=== PATIENT | male | born 1945 | race Caucasian/White ===

== ENCOUNTER 2017-04-11 03:23 | Emergency (ER) | payer MEDICARE ==
[2017-04-11] MEDS ORDERED: methylPREDNISolone 125 MG* 2 ML VIAL IV ONE (03:30)
[2017-04-11] MEDS ORDERED: Albuterol/Ipratropium NEB.SOL* Albuterol 2.5 MG/Ipratropium 0.5 MG 3 ML ONE (03:37)
[2017-04-11] MEDS: Albuterol/Ipratropium NEB.SOL* Albuterol 2.5 MG/Ipratropium 0.5 MG 3 ML INH SCH ×2 (03:42→03:43)
[2017-04-11 03:55] LABS: FIO2 28
[2017-04-11 04:00] LABS: PCO2 Arterial 54 mmHg (35-45)
[2017-04-11 04:01] LABS: Hematocrit 39 % (42-52); Hemoglobin 13.2 g/dl (14.0-18.0); Mean Corpuscular HGB Conc 34 g/dl (31-36); Mean Corpuscular Hemoglobin 34 pg (27-31); Mean Corpuscular Volume 100 fL (80-94); Mean Platelet Volume 9 um3 (7.4-10.4); Red Blood Count 3.93 10^6/ul (4.0-5.4); Red Cell Distribution Width 13 % (10.5-15); White Blood Count 9.8 10^3/ul (3.5-10.8)
[2017-04-11 04:20] LABS: Albumin 3.9 g/dL (3.2-5.2); BUN/Creatinine Ratio 11.1 (8-20); EGFR African American 86.9 (>60); EGFR Non-African American 67.6 (>60); Globulin 2.9 g/dL (2-4); Potassium 3.8 mmol/L (3.5-5.0); Total Bilirubin 0.3 mg/dL (0.2-1.0); Total Protein 6.8 g/dL (6.4-8.9)
[2017-04-11 04:21] LABS: Troponin I 0.03 ng/mL (<0.04)
--- NOTE | 2017-04-11 06:33 | ED ---
Isidro Medina Rebecca, scribed for Azeb Michaeluel on 04/11/17 at 0341 . Shortness of Breath - HPI Summary HPI Summary: Pt is a 71 y/o M BIBA who presents to ED c/o SOB characterized as dyspnea at rest. Sx have been gradually worsening since yesterday evening. Sx aggravated by exertion, alleviated by nothing. Additionally c/o slight cough. Denies CP, fever. His living facility has given him 7 respiratory treatments, but sx do not seen to be improving. PMHx COPD. - History of Current Complaint Chief Complaint: EDShortnessOfBreath Time Seen by Provider: 04/11/17 03:34 Hx Obtained From: Patient Onset/Duration: Still Present Dyspnea At: Rest Aggrevating Factors: Other - Exertion Alleviating Factors: Nothing Associated Signs & Symptoms: Cough (Nonproductive) - Allergy/Home Medications Allergies/Adverse Reactions: Allergies Allergy/AdvReac Type Severity Reaction Status Date / Time Lisinopril Allergy Unknown Verified 04/11/17 04:10 Reaction Details Home Medications: Home Medications Guaifenesin 400 mg PO TID PRN 04/11/17 [History Confirmed 04/11/17] predniSONE TAB* [Deltasone TAB*] 5 mg PO DAILY 04/11/17 [History Confirmed 04/11] PMH/Surg Hx/FS Hx/Imm Hx Cardiovascular History: Reports: Hx Hypertension Respiratory History: Reports: Hx Chronic Obstructive Pulmonary Disease (COPD), Hx Pneumonia Denies: Hx Asthma, Hx Chronic Bronchitis, Hx Cystic Fibrosis, Hx Lung Cancer , Hx Pleural Effusion, Hx Pulmonary Edema, Hx Pulmonary Embolism, Hx Seasonal Allergies, Hx Sleep Apnea Sensory History: Denies: Hx Cataracts, Hx Contacts or Glasses, Hx Eye Injury, Hx Eye Prosthesis, Hx Glaucoma, Hx Legally Blind, Hx Macular Degeneration, Hx Vision Problem, Hx Deafness, Hx Hearing Aid, Hx Hearing Problem, Other Sensory Impairments Opthamlomology History: Denies: Hx Cataracts, Hx Contacts or Glasses, Hx Eye Injury, Hx Eye Prosthesis, Hx Glaucoma, Hx Legally Blind, Hx Macular Degeneration, Hx Vision Problem, Other Sensory Impairments Neurological History: Reports: Hx Headaches, Hx Migraine, Hx Seizures, Other Neuro Impairments/Disorders - parkinsons Denies: Hx Dementia, Hx Developmental Delay, Hx Nerve Disease, Hx Spinal Cord Injury, Hx Transient Ischemic Attacks (TIA) Psychiatric History: Reports: Hx Anxiety, Hx Depression, Hx Schizophrenia, Other Psychiatric Issues/Disorders - autistic - Immunization History Date of Tetanus Vaccine: PT STATES UNSURE Date of Influenza Vaccine: PT STATES UNSURE Infectious Disease History: No Infectious Disease History: Denies: Hx Clostridium Difficile, Hx Hepatitis, Hx Human Immunodeficiency Virus (HIV), Hx of Known/Suspected MRSA, Hx Shingles, Hx Tuberculosis, Hx Known/ Suspected VRE, Hx Known/Suspected VRSA, History Other Infectious Disease, Traveled Outside the [place] in Last 30 Days - Family History Known Family History: Negative: Seizure Disorder - Social History Alcohol Use: None Substance Use Type: Reports: None Hx Tobacco Use: Yes Smoking Status (MU): Light Every Day Tobacco Smoker Have You Smoked in the Last Year: Yes Review of Systems Negative: Fever Negative: Chest Pain Positive: Shortness Of Breath, Cough All Other Systems Reviewed And Are Negative: Yes Physical Exam - Summary Physical Exam Summary: Appearance: Well appearing, no pain distress Skin: warm, dry, reflects adequate perfusion Head/face: normal Eyes: EOMI, KENYA ENT: normal Neck: supple, nontender Respiratory: breath sounds present, poor air entry, occasional wheeze bilaterally Cardiovascular: RRR, pulses symmetrical Abdomen: nontender, soft Bowel: present Musculoskeletal: normal, strength/ROM intact Neuro: alert and confused, sensory motor intact Triage Information Reviewed: Yes Vital Signs On Initial Exam: Initial Vitals Temp Pulse Resp BP Pulse Ox 98.0 F 73 24 180/115 98 04/11/17 03:28 04/11/17 03:28 04/11/17 03:28 04/11/17 03:28 04/11/17 03:28 Vital Signs Reviewed: Yes Diagnostics - Vital Signs Vital Signs Temp Pulse Resp BP Pulse Ox 04/11/17 03:28 98.0 F 73 24 180/115 98 - Laboratory Result Diagrams: 04/11/17 03:47 04/11/17 03:47 Lab Statement: Any lab studies that have been ordered have been reviewed, and results considered in the medical decision making process. - Radiology CXR Xray Interpretation: Positive (See Comments) - Infiltrate in the left lower lobe. Radiology Interpretation Completed By: ED Physician - EKG 0337 Cardiac Rate: NL - 76 bpm EKG Rhythm: Sinus Rhythm EKG Interpretation: RBBB Course/Dx - Course Assessment/Plan: Pt is a 71 y/o M BIBA who presents to ED c/o SOB characterized as dyspnea at rest. Sx have been gradually worsening since yesterday evening. Sx aggravated by exertion, alleviated by nothing. Additionally c/o slight cough. Denies CP, fever. His living facility has given him 7 respiratory treatments, but sx do not seen to be improving. PMHx COPD. CXR reveals infiltrate in the left lower lobe. EKG is sinus rhythm with RBBB. In the ED course, pt received Zosyn and Solu-Medrol. Discussed care of pt with Dr. Atkinson, who accepts pt for admisison. Pt will be admitted with Dx of PNA and acute exacerbation of COPD. He understands and agrees. Allergy noted. - Diagnoses Provider Diagnoses: PNA (pneumonia), Acute exacerbation of chronic obstructive pulmonary disease - Physician Notifications Discussed Care of Patient With: Aleksey Atkinson Time Discussed With Above Provider: 05:05 Instructed by Provider To: Other - Accepts pt for admission. Discharge - Discharge Plan Condition: Stable Disposition: ADMITTED TO [facility] documentation as recorded by the Isidro rodgers Rebecca accurately reflects the service I personally performed and the decisions made by , Everett Michael.
--- NOTE | 2017-04-11 08:18 | RAD ---
HISTORY: Shortness of breath COMPARISONS: May 14, 2016 VIEWS: 1: frontal portable view of the chest at 3:58 AM FINDINGS: LINES AND TUBES: None. CARDIOMEDIASTINAL SILHOUETTE: The cardiomediastinal silhouette is normal for portable technique. PLEURA: The costophrenic angles are sharp. No pleural abnormalities are noted. LUNG PARENCHYMA: There is extensive emphysematous change. There has been improved aeration of the lung bases bilaterally. ABDOMEN: The upper abdomen is clear. There is no subphrenic gas. BONES AND SOFT TISSUES: No bone or soft tissue abnormalities are noted. IMPRESSION: EMPHYSEMA
[2017-04-11 11:41] VITALS: BP 176/97
--- NOTE | 2017-04-11 21:14 | CONS ---
CONSULTATION REPORT: DATE OF CONSULT: 04/11/17 SERVICE REQUESTING CONSULT: Emergency room. REASON FOR CONSULT: Shortness of breath. SOURCE OF INFORMATION: History was obtained from interview with the patient, review of past medical records, ____. RELIABILITY: Fair. PRIMARY CARE PROVIDER: MAYDA Corrales HEALTHCARE PROXY: Josesito Ray. CODE STATUS: Full. HISTORY OF PRESENT ILLNESS: This is a 71-year-old man with past medical history of schizophrenia; hypertension; COPD with chronic respiratory failure, on 4 L home oxygen; depression, has been in his usual state of health, said he felt sick a few days ago with a slight cough that has since resolved. No rhinorrhea, sore throat, fevers, chills, nausea, vomiting, constipation, or diarrhea, who developed increasing difficulty breathing the night prior to presentation. Received nebulizer treatments at the [facility] prior to presenting to the emergency room. In the emergency room, he received 3 or 4 nebulizers per chart review and mg of methylprednisolone as well as 1 dose of Zosyn. It appears his administration of the methylprednisolone was approximately 5 to 6 hours prior to this author's evaluation of the patient. When seen by this author, the patient fell back to his baseline, felt his shortness of breath was completely resolved, and had no complaints. He is requesting return to [facility]. When interviewed by this author, the patient was on 2 L of oxygen compared to the 4 L that he uses at [facility] per review of their charts. I ambulated with this patient around the emergency room with no notable desaturation, no increased work of breathing. He was able to carry on a conversation while ambulating. We discussed further, with this ambulation , he had no increased shortness of breath, no accessory muscle use of breathing , so felt comfortable returning home. His only complaint was request for coffee. PAST MEDICAL HISTORY: Schizophrenia; hypertension; COPD; chronic respiratory failure, on 4 L oxygen at home; depression. HOME MEDICATIONS: 1. Guaifenesin. 2. Arthritis Hot topically. 3. Albuterol sulfate 4 times a day as needed. 4. Trazodone 50 mg at bedtime as needed. 5. Tiotropium 1 cap inhaled daily. 6. Acetaminophen 500 mg 3 times a day as needed. 7. Symbicort 80/4.5 two puffs inhaled twice daily. 8. Primidone 250 mg 3 times daily. 9. Nutritional supplements twice daily. 10. Olanzapine 20 mg twice daily. 11. Multivitamin 1 tab daily. 12. Mirtazapine 30 mg at bedtime. 13. Prednisone 5 mg daily. 14. Docusate 200 mg daily. 15. Diltiazem 240 mg daily. 16. Aspirin 81 mg daily. ALLERGIES: To LISINOPRIL. FAMILY HISTORY: No COPD, otherwise healthy. SOCIAL HISTORY: Lives at [facility]. Has a 40-pack history of smoking. No alcohol. REVIEW OF SYSTEMS: Positive for shortness of breath on presentation, now resolved. Slight cough several days prior to presentation, now resolved. Otherwise, all other systems reviewed and negative. PHYSICAL EXAM: Vitals when seen by this author, 144/77, heart rate is 81, respiratory rate is 18, he satting 96% on 2 L, T-max in the emergency room is 98. On physical exam, a thin gentleman sitting up in bed, interactive, pleasant , in no apparent distress. Talks in full sentences, he is able to count until 10 in one breath without difficulty. No accessory muscle use for respiration. His oropharynx is clear. He has dry mucous membranes. Sclerae anicteric. He has non- elevated JVD. No cervical or supraclavicular lymphadenopathy. Has regular rate and rhythm. No murmurs, rubs, or gallops. His lungs have decreased breath sounds throughout, but no adventitious lung sounds. His abdomen is soft, nontender, nondistended. Extremities are warm and well perfused. No clubbing, cyanosis, or edema. He is alert and oriented. DIAGNOSTIC STUDIES/LAB DATA: Reviewed, notable for hemoglobin 13.3, white blood cell count 9.8, platelets 199. D-dimer less than 200. He had arterial blood gas notable for pH of 7.4, arterial PCO2 of 54, arterial PO2 of 90. His BUN is 12, his creatinine is 1.0. Troponin I 0.03. His BNP is 28. Data reviewed: Chest x-ray, impression: Emphysema. EKG: Normal sinus rhythm, left axis, early R-wave progression, left anterior fascicular block. No ST or T-wave changes. ASSESSMENT AND PLAN: This is a 71-year-old man with past medical history of advanced chronic obstructive pulmonary disease with chronic respiratory failure on 4 L oxygen, presenting with increased shortness of breath, unresponsive to albuterol, improved with methylprednisolone. The patient carries clinical diagnosis of emphysema and chronic obstructive pulmonary disease. Therefore, it is not surprising that his shortness of breath is not improved with albuterol given the presumptive lack of reactivity in his airway. This is expected to improve with the administration of steroids given appropriate duration of time. When seen by this author, he restored back to his baseline without shortness of breath. He is able to ambulate without increased shortness of breath or increased oxygen demand. I do recommend that he continues steroid course for presumptive chronic obstructive pulmonary disease exacerbation including 40 mg of prednisone for 5 additional days. This information was relayed to Dr. Gabo Saenz, who will provide prescription for the patient upon discharge. Nothing that requires hospital stay at this point for further observation or treatment. No other changes recommended for the patient's chronic medical problems including his controlled schizophrenia, hypertension, and depression. TIME SPENT: Greater than 60 minutes was spent on the consultation of this patient, of which greater than half was spent [id number] with the patient in coordinating his care. Thank you for this consultation. Please do not hesitate to contact for further questions. [id number]/[facility] #: [id number] PABLO
== END 2017-04-11 12:59 | disposition home or self-care (01) ==
LOC: ED 03:23
DX: R05 Cough (principal); R06.02 Shortness of breath; F17.210 Nicotine dependence, cigarettes, uncomplicated
CPT/HCPCS: 36415; 36600; 71010; 80053; 82803; 83880; 84484; 85025; 85379; 93005; 94640; 99284; A9270-GY; J2543; J2930

== ENCOUNTER 2018-12-22 09:14 | Inpatient (IN) | payer MEDICARE ==
[2018-12-22] MEDS ORDERED: NS 0.9% 1000 ML** 1,000 ML IV ONE (09:31)
[2018-12-22] MEDS ORDERED: cefTRIAXone(*) 1 GM in NS 0.9% 50 ML* 50 ML IVPB ONE (09:31)
--- NOTE | 2018-12-22 09:32 | ED ---
Sepsis HPI - HPI Summary HPI Summary: Patient is a 73-year-old male living at the [facility] with history of schizophrenia and hypertension and COPD presenting to the ED with AMS, UTI and lethargy. Nursing staff at [facility] state typically patient is eating and drinking well and involved in activities and patient was difficult to arouse this morning. He has been treated for a UTI 2 days by his PCP. He has been on ciprofloxacin. No MOLST on file. Patient does present with paperwork stating no artificial food or drink, no artificial means of life support. Per RN note, 89% on 4L. Typically uses 4L at home for COPD. - History of Current Complaint Chief Complaint: EDAltMentalStatus Time Seen by Provider: 12/22/18 09:20 Stated Complaint: UTI / AMS PER EMS Hx Obtained From: Family/Food Service Agent, EMS Onset/Duration: Started Hours Ago Timing: Constant Onset Severity: Moderate Current Severity: Moderate Pain Intensity: 0 Pain Scale Used: 0-10 Numeric Aggravating Symptom(s): Unknown Alleviating Factor(s): Unknown Associated Signs & Symptoms: Negative - Risk Factor(s) Pseudomonas Risk Factors: Negative - Additional Pertinent History Primary Care Physician: [id number] - Allergy/Home Medications Allergies/Adverse Reactions: Allergies Allergy/AdvReac Type Severity Reaction Status Date / Time lisinopril Allergy Unknown Verified 12/22/18 11:29 Reaction Details Home Medications: Home Medications Hydrochlorothiazide TAB* [Hydrodiuril TAB*] 12.5 mg PO DAILY 12/22/18 [History Confirmed 12/22/18] LORazepam [Lorazepam] 0.5 mg PO DAILY 12/22/18 [History Confirmed 12/22/18] Menth/Me-Salicylate/Onley Oil [Castiva Cooling Lotion] 113 gm TP DAILY PRN [History Confirmed 12/22/18] Mometasone 220 MCG MDI * [Asmanex 220 MCG MDI *] 1 puff INH BID 12/22/18 [ History Confirmed 12/22/18] Tamsulosin CAP* [Flomax CAP*] 0.4 mg PO DAILY 12/22/18 [History Confirmed ] PMH/Surg Hx/FS Hx/Imm Hx Previously Healthy: Yes Cardiovascular History: Reports: Hx Hypertension Respiratory History: Reports: Hx Chronic Obstructive Pulmonary Disease (COPD), Hx Pneumonia Denies: Hx Asthma, Hx Chronic Bronchitis, Hx Cystic Fibrosis, Hx Lung Cancer , Hx Pleural Effusion, Hx Pulmonary Edema, Hx Pulmonary Embolism, Hx Seasonal Allergies, Hx Sleep Apnea Sensory History: Denies: Hx Cataracts, Hx Contacts or Glasses, Hx Eye Injury, Hx Eye Prosthesis, Hx Glaucoma, Hx Legally Blind, Hx Macular Degeneration, Hx Vision Problem, Hx Deafness, Hx Hearing Aid, Hx Hearing Problem, Other Sensory Impairments Opthamlomology History: Denies: Hx Cataracts, Hx Contacts or Glasses, Hx Eye Injury, Hx Eye Prosthesis, Hx Glaucoma, Hx Legally Blind, Hx Macular Degeneration, Hx Vision Problem, Other Sensory Impairments Neurological History: Reports: Hx Headaches, Hx Migraine, Hx Seizures, Other Neuro Impairments/Disorders - parkinsons Denies: Hx Dementia, Hx Developmental Delay, Hx Nerve Disease, Hx Spinal Cord Injury, Hx Transient Ischemic Attacks (TIA) Psychiatric History: Reports: Hx Anxiety, Hx Depression, Hx Schizophrenia, Other Psychiatric Issues/Disorders - autistic - Immunization History Date of Tetanus Vaccine: PT STATES UNSURE Date of Influenza Vaccine: PT STATES UNSURE Hx Pertussis Vaccination: No Immunizations Up to Date: Yes Infectious Disease History: No Infectious Disease History: Denies: Hx Clostridium Difficile, Hx Hepatitis, Hx Human Immunodeficiency Virus (HIV), Hx of Known/Suspected MRSA, Hx Shingles, Hx Tuberculosis, Hx Known/ Suspected VRE, Hx Known/Suspected VRSA, History Other Infectious Disease, Traveled Outside the [place] in Last 30 Days - Family History Known Family History: Negative: Seizure Disorder - Social History Occupation: Unemployed - disabled Lives: [facility] - [facility] Alcohol Use: None Hx Substance Use: No Substance Use Type: Reports: None Hx Tobacco Use: Yes Smoking Status (MU): Light Every Day Tobacco Smoker Have You Smoked in the Last Year: Yes Review of Systems Negative: Fever, Chills, Fatigue, Skin Diaphoresis Negative: Palpitations, Chest Pain Negative: Shortness Of Breath, Cough Positive: Abdominal Pain Positive: see HPI Negative: Arthralgia, Myalgia Skin: Negative All Other Systems Reviewed And Are Negative: Yes Physical Exam Triage Information Reviewed: Yes Vital Signs On Initial Exam: Initial Vitals Temp Pulse Resp BP Pulse Ox 97.8 F 89 16 119/72 97 12/22/18 09:17 12/22/18 09:17 12/22/18 09:17 12/22/18 09:17 12/22/18 09:17 Completion Of Physical Exam Limited Due To: Altered Mental Status Appearance: Positive: Ill-Appearing Skin: Positive: Pale Head/Face: Positive: Normal Head/Face Inspection Eyes: Positive: Conjunctiva Clear Neck: Positive: No Lymphadenopathy Respiratory/Lung Sounds: Positive: Clear to Auscultation, Breath Sounds Present Cardiovascular: Positive: RRR, Pulses are Symmetrical in both Upper and Lower Extremities Abdomen Description: Positive: Other: - tender to the suprapubic region without CVA tenderness bilaterally Musculoskeletal: Positive: Normal Neurological: Positive: Alert, Oriented to Person Place, Time, Speech Normal AVPU Assessment: Pain (Reponds To) - painful stimuli Diagnostics - Vital Signs Vital Signs Temp Pulse Resp BP Pulse Ox 12/22/18 09:17 97.8 F 89 16 119/72 97 - Laboratory Result Diagrams: 12/22/18 09:50 12/22/18 09:50 Lab Statement: Any lab studies that have been ordered have been reviewed, and results considered in the medical decision making process. Course/Dx - Course Course Of Treatment: Patient is a 73-year-old male living at the [facility] with history of schizophrenia and hypertension and COPD presenting to the ED with AMS, UTI and lethargy. Nursing staff at [facility] state typically patient is eating and drinking well and involved in activities and patient was difficult to arouse this morning. He has been treated for a UTI 2 days by his PCP. He has been on ciprofloxacin. No MOLST on file. Patient does present with paperwork stating no artificial food or drink, no artificial means of life support. Per RN note, 89% on 4L. Typically uses 4L at home for COPD. Hx of sepsis 2 years ago for PNA. Unable to obtain HPI from patient. Arousable only to stimuli, unable to arouse with voice commands. Patient has urine odor. No cough. Patient is sleeping and currently on 4L O2. Patient appears pale. Pedal edema +2 bilaterally. Chest CTA. RRR. Afebrile on arrival. HR 89. Restpirations 20. 97% on 4L and 119/72. EKG: sinus rhythm with atrial premature complex and couplets. RBBB. ST elevation, consider lateral injury. Rate is 78. UA shows 3+ leukocytes, 3+ WBCs and 3+ RBCs positive for UTI. Failure with outpatient antibiotics on Cipro 2 days. Chest xray: Probable mild interstitial pulmonary edema given thickened peripheral interlobular septal. Stigmata of COPD. Labs: 17,000 white count with a left shift. CRP 150. Trop 0.06. BNP 193. Discussed case with Dr. Mcneil d/t worsening sxs and failure of OP abx. Encouraged CT to assess kidney function. This is pending while patient is being admitted. MRSA nasal + called to me at 2:00pm. Patient did not meet septic criteria. - Differential Dx/Clinical Impression Differential Diagnosis/HQI/PQRI: Other - Pyelonephritis, fever of unknown origin Provider Diagnosis: Sepsis, UTI (urinary tract infection) - Provider Notifications Discussed Care Of Patient With: Char Mcneil Instructed by Provider To: Admit As Inpatient - Critical Care Time Critical Care Time: 30-74 min Discharge - Sign-Out/Discharge Documenting (check all that apply): Patient Departure Patient Received Moderate/Deep Sedation with Procedure: No - Discharge Plan Condition: Fair Disposition: ADMITTED TO [facility] Referrals: Francheska Blanco [Primary Care Provider] - - Billing Disposition and Condition Condition: FAIR Disposition: Admitted to [facility]
[2018-12-22 10:13] LABS: ABS Lymphocytes 0.5 10^3/ul (1.0-4.8); ABS Monocytes 0.6 10^3/ul (0-0.8); ABS Neutrophils 16.8 10^3/ul (1.5-7.7); Eosinophil % 0.2 %; Hematocrit 31 % (42-52); Hemoglobin 10.4 g/dL (14.0-18.0); Lymphocyte % 2.7 %; Mean Corpuscular HGB Conc 34 g/dL (31-36); Mean Corpuscular Hemoglobin 32 pg (27-31); Mean Corpuscular Volume 95 fL (80-94); Mean Platelet Volume 8.8 fL (7.4-10.4); Platelet Count 334 10^3/uL (150-450); Red Blood Count 3.25 10^6 /uL (4.18-5.48); Red Cell Distribution Width 13 % (10-15); White Blood Count 17.9 10^3/uL (3.5-10.8)
[2018-12-22 10:20] LABS: Urine Appearance Cloudy; Urine Bacteria Absent (Absent); Urine Bilirubin Negative (Negative); Urine Blood 3+ (Negative); Urine Color Yellow; Urine Glucose Negative (Negative); Urine Ketones Negative (Negative); Urine Nitrite Negative (Negative); Urine Protein 1+(30 mg/dL) (Negative); Urine Red Blood Cell 3+(>10/hpf) (Absent); Urine Specific Gravity 1.009 (1.010-1.030); Urine Urobilinogen Negative (Negative); Urine White Blood Cell 3+(>20/hpf) (Absent)
[2018-12-22 10:34] LABS: Activated Partial Thrombo Time 32.9 seconds (26.0-38.0); INR 1.07 (0.82-1.09)
[2018-12-22 10:35] LABS: Albumin 3.2 g/dL (3.2-5.2); BUN/Creatinine Ratio 18.1 (8-20); C Reactive Protein 150.27 mg/L (<8.01); Calcium 8.8 mg/dL (8.6-10.3); EGFR African American 110.2 (>60); EGFR Non-African American 91.1 (>60); Globulin 3.1 g/dL (2-4); Potassium 3.7 mmol/L (3.5-5.0); Total Bilirubin 0.3 mg/dL (0.2-1.0); Total Protein 6.3 g/dL (6.4-8.9)
[2018-12-22 10:38] LABS: Troponin I 0.06 ng/mL (<0.04)
[2018-12-22] MEDS ORDERED: Albuterol 2.5 MG/3 ML NEB.SOL* (0.083%) INH SCH ×2 (12:00→19:00)
[2018-12-22] MEDS ORDERED: Al Hydrox/Mg Hydrox/Simet LIQ* 30 ML UDC PO PRN (12:03)
[2018-12-22] MEDS ORDERED: Albuterol 2.5 MG/3 ML NEB.SOL* (0.083%) INH PRN (12:03)
[2018-12-22] MEDS ORDERED: NS 0.9% 1000 ML** 1,000 ML IV SCH (12:15)
[2018-12-22 14:20] LABS: Troponin I 0.06 ng/mL (<0.04)
--- NOTE | 2018-12-22 15:00 | HP ---
CC: MAYDA Corrales * HISTORY AND PHYSICAL: DATE OF ADMISSION: 12/22/18 PRIMARY CARE PHYSICIAN: MAYDA Corrales. CHIEF COMPLAINT: "I could not pee well." HISTORY OF PRESENT ILLNESS: Michael Shields is a 73-year-old male with a history of schizophrenia who is a resident of [facility] who was brought into the hospital with generalized lethargy. The patient was apparently diagnosed with UTI and treated with ciprofloxacin as outpatient. The patient was a very poor historian and as per my discussion with the registered nurse in the ED, when he came in he was very lethargic and now he is improving somewhat. The patient's urinalysis is grossly abnormal and he is going to be admitted with a diagnosis of UTI and sepsis. PAST MEDICAL HISTORY: 1. Hypertension. 2. COPD on 4 L of oxygen continuously. 3. Schizophrenia. 4. Depression. MEDICATIONS: Include: 1. Castiva body lotion daily p.r.n. 2. Guaifenesin 400 mg 3 times a day p.r.n. 3. Albuterol nebulizer on a p.r.n. basis. 4. Flomax 0.4 mg daily. 5. Primidone 250 mg t.i.d. 6. Hydrochlorothiazide 12.5 mg daily. 7. Spiriva 1 inhalation daily. 8. Asmanex 220 mcg 1 puff inhalation b.i.d. 9. Symbicort 80/4.5 two puffs b.i.d. 10. Zyprexa 20 mg b.i.d. 11. Remeron 30 mg at bedtime. 12. Lorazepam 0.5 mg b.i.d. p.r.n. 13. Colace 200 mg daily. 14. Cardizem CD 240 mg daily. 15. Prednisone 5 mg daily. 16. Aspirin 81 mg daily. 17. Acetaminophen on a p.r.n. basis. ALLERGIES: LISINOPRIL. FAMILY HISTORY: Unable to obtain from this lethargic patient. SOCIAL HISTORY: The patient is a resident at [facility]. As his health care proxy he has mentioned Maria Del Carmen Vishal, the college or university department head of [facility], as well as his brother Alex Shields. He was requested to be do not resuscitate by Maria Del Carmen Rodgers. There was no history of tobacco, alcohol, or drug use the patient is admitting to. REVIEW OF SYSTEMS: This is limited due to the patient's lethargy. He complains of problems with urination and burning with urination. He denies any problems with shortness of breath or chest pain. All the remaining 12 systems were reviewed with the patient. All of which were very limited due to the patient's lethargy and were otherwise negative. PHYSICAL EXAMINATION GENERAL APPEARANCE: The patient is a very pleasant 73-year-old male who is in no acute distress. Slightly lethargic. The patient is alert and oriented x2. VITAL SIGNS: Blood pressure of 145/82, heart rate of 82 and regular, respiratory rate 26, oxygen saturation 100% on 2 L of oxygen via nasal cannula, temperature of 97.8. HEENT: Head atraumatic and normocephalic. Eyes: Pupils are equal and reactive to light and accommodation. Oropharynx clear. Mucosa dry. NECK: Supple with no JVD, no bruits bilaterally. RESPIRATORY: Clear to auscultation bilaterally. CARDIOVASCULAR: Regular rate and rhythm. No murmur. ABDOMEN: Slight diffuse tenderness with no rebound, no guarding. Bowel sounds are present in all 4 quadrants. EXTREMITIES: There is no edema. Pulses are +2 bilaterally. No clubbing or cyanosis. NEUROLOGIC: Speech is clear. Cranial nerves II through XII grossly intact. Motor strength is 5/5 bilaterally. SKIN: On evaluation of the skin, no ecchymotic area or rashes noted. LABORATORY DATA: Sodium of 131, potassium 3.7, chloride 91, carbon-dioxide 32 , BUN 15, creatinine 0.83. Liver function tests show alkaline phosphatase of 138. AST of 19, ALT 19, bilirubin of 0.3. WBC of 72, hemoglobin of 10.4, hematocrit of 31, MCV of 95, and platelets of 334. The patient's C-reactive protein was 150, brain natriuretic peptide was 193. The patient's troponin was 0.06. Abdomen and pelvis CT is pending . The patient's EKG shows a right bundle branch block and left anterior hemiblock with a heart rate of 78 beats per minute with no specific ST changes. ST- elevation is likely due to early repolarization. Comparing with prior EKG in 2017, the changes as similar. Portable chest x-ray. Impression: "Chronic obstructive pulmonary disease and emphysema, mild interstitial pulmonary edema, given ." The patient's urinalysis showed +3 esterase, +3 wbc's, +3 rbc's, +3 blood. ASSESSMENT AND PLAN: 1. The patient is a 73-year-old male with a history of schizophrenia who presents with what appears to be dehydration and urinary tract infection. The patient is going to be treated with ceftriaxone and intravenous fluids. I suspect that the patient's hyponatremia and hypokalemia are due to dehydration. 2. The patient's troponin is mildly elevated. He complains of no chest pain and no shortness of breath, and EKG is basically unremarkable. Nevertheless, he is going to be placed on telemetry monitored bed. His troponins are going to be followed up. 3. In regard to the patient's chronic obstructive pulmonary disease, it does not appear to be an exacerbation. He is on chronic oxygen at 2 to 4 L. Will also continue his inhalers. The patient is on chronic prednisone, this is going to be continued. 4. For DVT prophylaxis the patient is going to be placed on heparin subcutaneously. 5. In regard to the patient's history of schizophrenia, his olanzapine is going to be continued. 6. Of note, the patient has a history of benign prostatic hyperplasia and he is on Flomax. CT of the abdomen and pelvis is being obtained to rule out hydronephrosis. For the time-being I will also obtain postvoid residual, but please note that the patient has a large amount of urinary incontinence during ED stay. The patient's code status was discussed with Maria Del Carmen Rodgers, the patient's health care proxy as she wishes to be "Do Not Resuscitate" and that is going to be ordered and the MOLST was filled. TIME SPENT: Approximately 65-minutes was spent on the admission of this patient , more than half that time was spent [id number] with the patient doing the interview and physical exam. [id number]/[facility] #: [id number] PABLO
[2018-12-22] MEDS: Primidone TAB(*) 250 MG PO SCH ×2 (18:34→20:23)
[2018-12-22] MEDS: Heparin VIAL(*) 5000 UNITS/ML VIAL (FIVE THOUSAND) SUBCUT SCH ×2 (18:34→20:24)
[2018-12-22] MEDS: Mometasone/Formoter 100/5 MDI INH SCH (19:19)
[2018-12-22] MEDS: LORazepam TAB(*) 0.5 MG PO PRN (20:23)
[2018-12-22] MEDS: Mirtazapine TAB* 15 MG PO SCH (20:23)
[2018-12-22] MEDS: OLANzapine TAB* 10 MG PO SCH (20:46)
[2018-12-22] MEDS ORDERED: LORazepam INJ* 2 MG/ML 1 ML VIAL IV PUSH ONE (22:01)
[2018-12-22] MEDS ORDERED: Lorazepam PYXIS KEY PRN (22:01)
[2018-12-23] MEDS: Heparin VIAL(*) 5000 UNITS/ML VIAL (FIVE THOUSAND) SUBCUT SCH ×3 (05:20→21:49)
[2018-12-23 05:33] LABS: ABS Eosinophils 0.4 10^3/ul (0-0.6); ABS Lymphocytes 1.7 10^3/ul (1.0-4.8); ABS Monocytes 0.9 10^3/ul (0-0.8); ABS Neutrophils 6.7 10^3/ul (1.5-7.7); Eosinophil % 3.8 %; Hematocrit 33 % (42-52); Hemoglobin 10.9 g/dL (14.0-18.0); Lymphocyte % 17.3 %; Mean Corpuscular HGB Conc 34 g/dL (31-36); Mean Corpuscular Hemoglobin 32 pg (27-31); Mean Corpuscular Volume 96 fL (80-94); Mean Platelet Volume 8.6 fL (7.4-10.4); Platelet Count 339 10^3/uL (150-450); Red Blood Count 3.38 10^6 /uL (4.18-5.48); Red Cell Distribution Width 13 % (10-15); White Blood Count 9.7 10^3/uL (3.5-10.8)
[2018-12-23 05:45] LABS: Calcium 8.7 mg/dL (8.6-10.3); Potassium 3.8 mmol/L (3.5-5.0)
[2018-12-23] MEDS: Tiotropium CAP.INH* CAP.INH/18 MCG (USE ORDER SET !) INH SCH (08:19)
[2018-12-23] MEDS: Mometasone/Formoter 100/5 MDI INH SCH ×2 (08:22→19:03)
[2018-12-23] MEDS ORDERED: Spiriva Inhaler DEVICE* 1 EACH DEVICE INH ONE (09:00)
[2018-12-23] MEDS ORDERED: cefTRIAXone(*) 1 GM in NS 0.9% 50 ML* 50 ML IVPB SCH (10:00)
[2018-12-23] MEDS: Primidone TAB(*) 250 MG PO SCH ×3 (11:19→21:49)
[2018-12-23] MEDS: Aspirin EC TAB* 81 MG TAB.EC PO SCH (11:20)
[2018-12-23] MEDS: predniSONE TAB* 5 MG PO SCH (11:20)
[2018-12-23] MEDS: Tamsulosin CAP* 0.4 MG PO SCH (11:20)
[2018-12-23] MEDS: OLANzapine TAB* 10 MG PO SCH ×2 (11:20→21:49)
[2018-12-23] MEDS: Diltiazem CD CAP* 240 MG PO SCH (11:20)
[2018-12-23] MEDS: Docusate CAP* 100 MG PO SCH (11:20)
[2018-12-23] MEDS: Acetaminophen TAB* 325 MG PO PRN (12:21)
[2018-12-23] MEDS: LORazepam TAB(*) 0.5 MG PO PRN (12:21)
--- NOTE | 2018-12-23 12:29 | PN ---
Subjective Date of Service: 12/23/18 Interval History: Mr. Shields is feeling poor today. He is unable to verbalize why, but when asked if he had any pain he reported abdominal and penile pain. He wants to go home. Denies CP or SOB. Nursing reports agitation, though appears to be at his baseline per family member she spoke with. Family History: Unchanged from Admission Social History: Unchanged from Admission Past Medical History: Unchanged from Admission Objective Active Medications: Acetaminophen (Tylenol Tab*) 650 mg PO Q4H PRN FEVER/PAIN Al Hydrox/Mg Hydrox/Simethicone (Maalox Plus*) 30 ml PO Q6H PRN INDIGESTION Albuterol (Ventolin 2.5 Mg/3 Ml Neb.Clau*) 2.5 mg INH [id number] AWAKE PRN SOB/WHEEZING Aspirin (Aspirin Ec Tab*) 81 mg PO DAILY MELISSA Diltiazem HCl (Cardizem Cd Cap*) 240 mg PO DAILY MELIS[facility] Docusate Sodium (Colace Cap*) 200 mg PO DAILY [facility] Heparin Sodium (Porcine) (Heparin Vial(*)) 5,000 units SUBCUT Q8HR MELISSA Ceftriaxone Sodium 1 gm/ (Sodium Chloride) 50 mls @ 200 mls/hr IVPB Q24H MELIS[facility] Lorazepam (Ativan Tab(*)) 0.5 mg PO DAILY PRN ANXIETY Mirtazapine (Remeron Tab*) 30 mg PO BEDTIME MELISSA Mometasone Furoate/Formoterol Fumar (Dulera 100/5 Mdi*) 2 puff INH BID MELISSA Olanzapine (Zyprexa Tab*) 20 mg PO BID MELISSA Prednisone (Deltasone Tab*) 5 mg PO DAILY MELIS[facility] Primidone (Mysoline Tab(*)) 250 mg PO TID MELISSA Tamsulosin HCl (Flomax Cap*) 0.4 mg PO DAILY MELISSA Tiotropium [place] (Spiriva Cap.Inh*) 1 cap INH DAILY MELISSA Vital Signs - 8 hr 12/23/18 12/23/18 08:22 12:21 Pulse Rate 64 Respiratory 16 20 Rate O2 Sat by Pulse 98 Oximetry Oxygen Devices in Use Now: Nasal Cannula - 3L Appearance: Elderly male sitting in bed in NAD Eyes: No Scleral Icterus Neck: NL Appearance and Movements; NL JVP, Trachea Midline Respiratory: Symmetrical Chest Expansion and Respiratory Effort, Clear to Auscultation Cardiovascular: NL Sounds; No Murmurs; No JVD, RRR Abdominal: - - Refused Neurological: - - Oriented to self Lines/Tubes/Other Access: Clean, Dry and Intact Peripheral IV Nutrition: Taking PO's Result Diagrams: 12/23/18 05:11 12/23/18 05:11 Assess/Plan/Problems-Billing Assessment: Mr. Shields is a 73 yo M with PMH of schizophrenia, HTN, COPD on 4L, and depression; who presented to the ED with urinary complaints and was found to have a UTI and urinary retention. - Patient Problems (1) UTI (urinary tract infection) Comment: - Started on cipro as an outpatient, but unclear when this was started - Likely secondary to urinary retention - Urine culture pending - CT shows bilateral hydronephrosis and bladder obstruction - Continue ceftriaxone (2) Acute urinary retention Code(s): R33.8 - OTHER RETENTION OF URINE Comment: - Retained 1500mL overnight and Mercedes was placed - Secondary to BPH - Will leave Mercedes in today and attempt trial void tomorrow (3) Sepsis Comment: - Resolved - Met criteria on admission with leukocytosis and tachypnea; source is UTI (4) Elevated troponin Code(s): R79.89 - OTHER SPECIFIED ABNORMAL FINDINGS OF BLOOD CHEMISTRY Comment : - Asymptomatic - EKG appears at baseline - Suspect demand ischemia (5) COPD (chronic obstructive pulmonary disease) Code(s): J44.9 - CHRONIC OBSTRUCTIVE PULMONARY DISEASE, UNSPECIFIED Comment: - Baseline 4L continuous oxygen - No evidence of exacerbation - Continue Dulera, Spiriva, nebs (6) Schizophrenia Code(s): F20.9 - SCHIZOPHRENIA, UNSPECIFIED Comment: - Continue olanzapine (7) Hypertension Code(s): I10 - ESSENTIAL (PRIMARY) HYPERTENSION Comment: - Normotensive, SBP 100-130s - Hold HCTZ - Continue diltiazem (8) Depression Code(s): F32.9 - MAJOR DEPRESSIVE DISORDER, SINGLE EPISODE, UNSPECIFIED Comment: - Continue mirtazapine (9) Anemia Code(s): D64.9 - ANEMIA, UNSPECIFIED Comment: - H&H at baseline - Suspect anemia of chronic disease (10) DVT prophylaxis Comment: - Heparin SQ (11) DNR (do not resuscitate) Comment: Status and Disposition: Inpatient. Anticipate d/c back to [facility] when medically stable, likely 1-2 more days. Attending: Fredo Scales
[2018-12-23] MEDS: Mirtazapine TAB* 15 MG PO SCH (21:49)
[2018-12-24] MEDS: Albuterol 2.5 MG/3 ML NEB.SOL* (0.083%) INH PRN ×3 (04:32→20:26)
[2018-12-24] MEDS: Acetaminophen TAB* 325 MG PO PRN ×2 (05:42→13:56)
[2018-12-24] MEDS: Heparin VIAL(*) 5000 UNITS/ML VIAL (FIVE THOUSAND) SUBCUT SCH ×3 (05:43→20:23)
[2018-12-24 06:25] LABS: ABS Basophils 0.1 10^3/ul (0-0.2); ABS Eosinophils 0.3 10^3/ul (0-0.6); ABS Lymphocytes 1.4 10^3/ul (1.0-4.8); ABS Monocytes 0.8 10^3/ul (0-0.8); ABS Neutrophils 9.4 10^3/ul (1.5-7.7); Eosinophil % 2.3 %; Hematocrit 34 % (42-52); Hemoglobin 11.1 g/dL (14.0-18.0); Lymphocyte % 11.6 %; Mean Corpuscular HGB Conc 33 g/dL (31-36); Mean Corpuscular Hemoglobin 32 pg (27-31); Mean Corpuscular Volume 97 fL (80-94); Mean Platelet Volume 8.7 fL (7.4-10.4); Platelet Count 346 10^3/uL (150-450); Red Cell Distribution Width 14 % (10-15); White Blood Count 11.9 10^3/uL (3.5-10.8)
[2018-12-24] MEDS: Tiotropium CAP.INH* CAP.INH/18 MCG (USE ORDER SET !) INH SCH (07:44)
[2018-12-24] MEDS: Mometasone/Formoter 100/5 MDI INH SCH ×2 (07:44→20:25)
[2018-12-24] MEDS: OLANzapine TAB* 10 MG PO SCH ×2 (09:07→20:26)
[2018-12-24] MEDS: Diltiazem CD CAP* 240 MG PO SCH (09:07)
[2018-12-24] MEDS: Aspirin EC TAB* 81 MG TAB.EC PO SCH (09:07)
[2018-12-24] MEDS: Primidone TAB(*) 250 MG PO SCH ×3 (09:07→20:24)
[2018-12-24] MEDS: predniSONE TAB* 5 MG PO SCH (09:07)
[2018-12-24] MEDS: Tamsulosin CAP* 0.4 MG PO SCH (09:08)
[2018-12-24] MEDS: Docusate CAP* 100 MG PO SCH (09:08)
[2018-12-24] MEDS: LORazepam TAB(*) 0.5 MG PO PRN (14:31)
--- NOTE | 2018-12-24 15:15 | PN ---
Subjective Date of Service: 12/24/18 Interval History: Mr. Shields is not feeling well today. He cannot describe any specific complaints. Denies CP, SOB, N/V. He is not happy about his Mercedes being removed because he believes he will continue to retain urine. No concerns from nursing. Family History: Unchanged from Admission Social History: Unchanged from Admission Past Medical History: Unchanged from Admission Objective Active Medications: Acetaminophen (Tylenol Tab*) 650 mg PO Q4H PRN FEVER/PAIN Al Hydrox/Mg Hydrox/Simethicone (Maalox Plus*) 30 ml PO Q6H PRN INDIGESTION Albuterol (Ventolin 2.5 Mg/3 Ml Neb.Clau*) 2.5 mg INH [id number] AWAKE PRN SOB/WHEEZING Aspirin (Aspirin Ec Tab*) 81 mg PO DAILY [facility] Diltiazem HCl (Cardizem Cd Cap*) 240 mg PO DAILY [facility] Docusate Sodium (Colace Cap*) 200 mg PO DAILY [facility] Heparin Sodium (Porcine) (Heparin Vial(*)) 5,000 units SUBCUT Q8HR MELIS[facility] Lorazepam (Ativan Tab(*)) 0.5 mg PO DAILY PRN ANXIETY Mirtazapine (Remeron Tab*) 30 mg PO BEDTIME MELISSA Mometasone Furoate/Formoterol Fumar (Dulera 100/5 Mdi*) 2 puff INH BID MELISSA Olanzapine (Zyprexa Tab*) 20 mg PO BID MELISSA Prednisone (Deltasone Tab*) 5 mg PO DAILY MELIS[facility] Primidone (Mysoline Tab(*)) 250 mg PO TID MELISSA Tamsulosin HCl (Flomax Cap*) 0.4 mg PO DAILY MELISSA Tiotropium [place] (Spiriva Cap.Inh*) 1 cap INH DAILY MELISSA Vital Signs - 8 hr 12/24/18 12/24/18 12/24/18 07:30 08:00 09:40 Temperature 97.6 F Pulse Rate 78 72 Respiratory 20 24 14 Rate Blood Pressure 172/84 (mmHg) O2 Sat by Pulse 99 98 Oximetry 12/24/18 12/24/18 12:00 14:31 Temperature Pulse Rate 74 Respiratory 18 20 Rate Blood Pressure 152/84 (mmHg) O2 Sat by Pulse 98 Oximetry Oxygen Devices in Use Now: Nasal Cannula - 2L Appearance: Elderly male sitting in bed in NAD Eyes: No Scleral Icterus Ears/Nose/Mouth/Throat: Mucous Membranes Moist Neck: NL Appearance and Movements; NL JVP, Trachea Midline Respiratory: Symmetrical Chest Expansion and Respiratory Effort, Clear to Auscultation Cardiovascular: NL Sounds; No Murmurs; No JVD, RRR Abdominal: NL Sounds; No Tenderness; No Distention Extremities: No Edema Neurological: Alert and Oriented x 3 - Inappropriate with staff Lines/Tubes/Other Access: Clean, Dry and Intact Peripheral IV Nutrition: Taking PO's Result Diagrams: 12/24/18 05:51 12/23/18 05:11 Assess/Plan/Problems-Billing Assessment: Mr. Shields is a 73 yo M with PMH of schizophrenia, HTN, COPD on 4L, and depression; who presented to the ED with urinary complaints and was found to have a UTI and urinary retention. - Patient Problems (1) Acute urinary retention Code(s): R33.8 - OTHER RETENTION OF URINE Comment: - Retained 1500mL overnight and Mercedes was placed - Secondary to BPH - Failed trial void today so Mercedes reinserted - Will need to be d/c'd with Mercedes, but unclear if this can be managed by staff at [facility] and patient is not able to manage it himself; will need to speak with Case Management to determine appropriate d/c plan (2) UTI (urinary tract infection) Comment: - Urine culture negative - D/c ceftriaxone (3) Elevated troponin Code(s): R79.89 - OTHER SPECIFIED ABNORMAL FINDINGS OF BLOOD CHEMISTRY Comment : - Asymptomatic - EKG appears at baseline - Suspect demand ischemia (4) COPD (chronic obstructive pulmonary disease) Code(s): J44.9 - CHRONIC OBSTRUCTIVE PULMONARY DISEASE, UNSPECIFIED Comment: - Baseline 4L continuous oxygen - No evidence of exacerbation - Continue Dulera, Spiriva, nebs (5) Schizophrenia Code(s): F20.9 - SCHIZOPHRENIA, UNSPECIFIED Comment: - Continue olanzapine (6) Hypertension Code(s): I10 - ESSENTIAL (PRIMARY) HYPERTENSION Comment: - Hypertensive, SBP up to 170 - Continue diltiazem; resume HCTZ (7) Depression Code(s): F32.9 - MAJOR DEPRESSIVE DISORDER, SINGLE EPISODE, UNSPECIFIED Comment: - Continue mirtazapine (8) Anemia Code(s): D64.9 - ANEMIA, UNSPECIFIED Comment: - H&H at baseline - Suspect anemia of chronic disease (9) DVT prophylaxis Comment: - Heparin SQ (10) DNR (do not resuscitate) Comment: Status and Disposition: Inpatient. D/c plan to be determined as he will need to go home with a Mercedes and unknown if [facility] will be able to accommodate this. Case Management will need to follow up. Attending: Fredo Scales
[2018-12-24 15:45] LABS: Urine Appearance Clear; Urine Bacteria Absent (Absent); Urine Bilirubin Negative (Negative); Urine Blood 1+ (Negative); Urine Color Straw; Urine Glucose Negative (Negative); Urine Ketones Negative (Negative); Urine Nitrite Negative (Negative); Urine Protein Negative (Negative); Urine Red Blood Cell Trace(0-2/hpf) (Absent); Urine Specific Gravity 1.002 (1.010-1.030); Urine Urobilinogen Negative (Negative); Urine White Blood Cell Trace(0-5/hpf) (Absent)
[2018-12-24] MEDS: Mirtazapine TAB* 15 MG PO SCH (20:25)
[2018-12-25] MEDS: Heparin VIAL(*) 5000 UNITS/ML VIAL (FIVE THOUSAND) SUBCUT SCH ×3 (05:32→21:10)
[2018-12-25] MEDS: Tiotropium CAP.INH* CAP.INH/18 MCG (USE ORDER SET !) INH SCH (07:05)
[2018-12-25] MEDS: Mometasone/Formoter 100/5 MDI INH SCH ×3 (07:08→19:24)
[2018-12-25 07:30] LABS: ABS Eosinophils 0.3 10^3/ul (0-0.6); ABS Lymphocytes 1.7 10^3/ul (1.0-4.8); ABS Monocytes 0.7 10^3/ul (0-0.8); ABS Neutrophils 5.9 10^3/ul (1.5-7.7); Eosinophil % 3.7 %; Hematocrit 34 % (42-52); Hemoglobin 11.1 g/dL (14.0-18.0); Lymphocyte % 19.2 %; Mean Corpuscular HGB Conc 33 g/dL (31-36); Mean Corpuscular Hemoglobin 32 pg (27-31); Mean Corpuscular Volume 97 fL (80-94); Platelet Count 351 10^3/uL (150-450); Red Blood Count 3.45 10^6 /uL (4.18-5.48); Red Cell Distribution Width 13 % (10-15); White Blood Count 8.7 10^3/uL (3.5-10.8)
[2018-12-25 07:41] LABS: BUN/Creatinine Ratio 8.2 (8-20); Calcium 8.7 mg/dL (8.6-10.3); EGFR African American 107.2 (>60); EGFR Non-African American 88.6 (>60); Potassium 3.5 mmol/L (3.5-5.0)
[2018-12-25] MEDS: predniSONE TAB* 5 MG PO SCH (08:32)
[2018-12-25] MEDS: Aspirin EC TAB* 81 MG TAB.EC PO SCH (08:32)
[2018-12-25] MEDS: Tamsulosin CAP* 0.4 MG PO SCH (08:32)
[2018-12-25] MEDS: Diltiazem CD CAP* 240 MG PO SCH (08:32)
[2018-12-25] MEDS: OLANzapine TAB* 10 MG PO SCH ×2 (08:32→21:10)
[2018-12-25] MEDS: Hydrochlorothiazide TAB* 25 MG PO SCH (08:33)
[2018-12-25] MEDS: Primidone TAB(*) 250 MG PO SCH ×3 (08:33→21:10)
[2018-12-25] MEDS: Docusate CAP* 100 MG PO SCH (08:33)
[2018-12-25] MEDS: LORazepam TAB(*) 0.5 MG PO PRN (09:01)
[2018-12-25] MEDS: Acetaminophen TAB* 325 MG PO PRN (09:01)
--- NOTE | 2018-12-25 10:58 | PN ---
Subjective Date of Service: 12/25/18 Interval History: Patient has difficulty in speaking, dysarthric at baseline. He wants to go home. He cannot understand why he needs the catheter, and why he needs to wait until tomorrow to potentially go home. Nursing reports episodes of fast irregular HR on telemetry Family History: Unchanged from Admission Social History: Unchanged from Admission Past Medical History: Unchanged from Admission Objective Active Medications: Acetaminophen (Tylenol Tab*) 650 mg PO Q4H PRN PRN Reason: FEVER/PAIN Last Admin: 12/25/18 09:01 Dose: 650 mg Al Hydrox/Mg Hydrox/Simethicone (Maalox Plus*) 30 ml PO Q6H PRN PRN Reason: INDIGESTION Albuterol (Ventolin 2.5 Mg/3 Ml Neb.Clau*) 2.5 mg INH [id number] AWAKE PRN PRN Reason: SOB/WHEEZING Last Admin: 12/24/18 20:26 Dose: 2.5 mg Aspirin (Aspirin Ec Tab*) 81 mg PO DAILY [facility] Last Admin: 12/25/18 08:32 Dose: 81 mg Diltiazem HCl (Cardizem Cd Cap*) 240 mg PO DAILY [facility] Last Admin: 12/25/18 08:32 Dose: 240 mg Docusate Sodium (Colace Cap*) 200 mg PO DAILY [facility] Last Admin: 12/25/18 08:33 Dose: 200 mg Heparin Sodium (Porcine) (Heparin Vial(*)) 5,000 units SUBCUT Q8HR [facility] Last Admin: 12/25/18 05:32 Dose: 5,000 units Hydrochlorothiazide (Hydrodiuril Tab*) 12.5 mg PO DAILY [facility] Last Admin: 12/25/18 08:33 Dose: 12.5 mg Lorazepam (Ativan Tab(*)) 0.5 mg PO DAILY PRN PRN Reason: ANXIETY Last Admin: 12/25/18 09:01 Dose: 0.5 mg Mirtazapine (Remeron Tab*) 30 mg PO BEDTIME [facility] Last Admin: 12/24/18 20:25 Dose: 30 mg Mometasone Furoate/Formoterol Fumar (Dulera 100/5 Mdi*) 2 puff INH BID [facility] Last Admin: 12/25/18 07:41 Dose: 2 puff Olanzapine (Zyprexa Tab*) 20 mg PO BID [facility] Last Admin: 12/25/18 08:32 Dose: 20 mg Prednisone (Deltasone Tab*) 5 mg PO DAILY [facility] Last Admin: 12/25/18 08:32 Dose: 5 mg Primidone (Mysoline Tab(*)) 250 mg PO TID [facility] Last Admin: 12/25/18 08:33 Dose: 250 mg Tamsulosin HCl (Flomax Cap*) 0.4 mg PO DAILY [facility] Last Admin: 12/25/18 08:32 Dose: 0.4 mg Tiotropium [place] (Spiriva Cap.Inh*) 1 cap INH DAILY [facility] Last Admin: 12/25/18 07:05 Dose: 1 cap Vital Signs - 8 hr 12/25/18 12/25/18 12/25/18 04:00 08:00 09:01 Temperature 36.4 C 36.1 C Pulse Rate 66 70 Respiratory 18 17 20 Rate Blood Pressure 124/53 155/82 (mmHg) O2 Sat by Pulse 100 100 Oximetry Oxygen Devices in Use Now: Nasal Cannula Appearance: alert, no distress Eyes: No Scleral Icterus Ears/Nose/Mouth/Throat: NL Teeth, Lips, Gums Neck: NL Appearance and Movements; NL JVP Respiratory: Symmetrical Chest Expansion and Respiratory Effort, - - diminished BS Cardiovascular: NL Sounds; No Murmurs; No JVD Abdominal: NL Sounds; No Tenderness; No Distention Extremities: No Edema Lines/Tubes/Other Access: Clean, Dry and Intact Peripheral IV Nutrition: Taking PO's Result Diagrams: 12/25/18 06:28 12/25/18 06:28 Microbiology and Other Data: Microbiology 12/22/18 12:20 Nasal Nasal Screen MRSA (PCR) - Final Mrsa Detected 12/22/18 09:50 Blood Venous Aerobic Blood Culture - Preliminary 12/22/18 09:50 Blood Venous Anaerobic Blood Culture - Preliminary No Growth Day 3 No Growth Day 3 12/22/18 09:45 Urine Urine Culture - Preliminary Staphylococcus Aureus 12/22/18 09:40 Blood Venous Aerobic Blood Culture - Preliminary 12/22/18 09:40 Blood Venous Anaerobic Blood Culture - Preliminary No Growth Day 3 No Growth Day 3 EKG Data: telemetry: periods of irregularity, HR 80-120, no discernable P waves Assess/Plan/Problems-Billing Assessment: Mr. Shields is a 73 yo M with PMH of schizophrenia, HTN, COPD on 4L, and depression; who presented to the ED with urinary complaints and was found to have a UTI and urinary retention. - Patient Problems (1) Acute urinary retention Current Visit: Yes Status: Acute Priority: High Code(s): R33.8 - OTHER RETENTION OF URINE SNOMED Code(s): 901190450 Comment: - Failed trial void today so Mercedes reinserted - Will need to be d/c'd with Mercedes, but unclear if this can be managed by staff at [facility] and patient is not able to manage it himself; will need to speak with Case Management to determine appropriate d/c plan - will need urology f/u (2) Tachycardia Current Visit: No Status: Acute Priority: Medium Onset Date: 04/11/14 Code(s): R00.0 - TACHYCARDIA, UNSPECIFIED SNOMED Code(s): 3979409 Comment: -Reviewed EKGs X3 in this hospital stay, shows NSR with PACs -May have paroxysmal a-fib, will check another 12-lead (3) MRSA (methicillin resistant staph aureus) culture positive Current Visit: Yes Status: Acute Priority: Medium Code(s): Z22.322 - CARRIER OR SUSPECTED CARRIER OF METHICILLIN RESIS STAPH SNOMED Code(s): 288687992 Comment: -Patient has MRSA molecular positive in nasal swab -Urine growing small counts of staph aureus -will start doxycycline and follow cultures (4) DNR (do not resuscitate) Current Visit: Yes Status: Acute Priority: Low Comment: -code status is appropriate Status and Disposition: Inpatient. D/c plan to be determined as he will need to go home with a Mercedes and unknown if [facility] will be able to accommodate this. Case Management will need to follow up.
[2018-12-25] MEDS: Mirtazapine TAB* 15 MG PO SCH (21:10)
[2018-12-25] MEDS: DOXYcycline CAP(*) 100 MG PO SCH (21:10)
[2018-12-25] MEDS: Albuterol 2.5 MG/3 ML NEB.SOL* (0.083%) INH PRN (21:11)
[2018-12-26] MEDS: Heparin VIAL(*) 5000 UNITS/ML VIAL (FIVE THOUSAND) SUBCUT SCH ×2 (05:15→12:42)
[2018-12-26] MEDS: Mometasone/Formoter 100/5 MDI INH SCH ×2 (07:00→19:50)
[2018-12-26] MEDS: Tiotropium CAP.INH* CAP.INH/18 MCG (USE ORDER SET !) INH SCH (07:00)
[2018-12-26] MEDS: Hydrochlorothiazide TAB* 25 MG PO SCH (09:05)
[2018-12-26] MEDS: OLANzapine TAB* 10 MG PO SCH (09:06)
[2018-12-26] MEDS: Tamsulosin CAP* 0.4 MG PO SCH (09:06)
[2018-12-26] MEDS: Docusate CAP* 100 MG PO SCH (09:06)
[2018-12-26] MEDS: Primidone TAB(*) 250 MG PO SCH ×2 (09:06→12:43)
[2018-12-26] MEDS: predniSONE TAB* 5 MG PO SCH (09:06)
[2018-12-26] MEDS: Diltiazem CD CAP* 240 MG PO SCH (09:06)
[2018-12-26] MEDS: DOXYcycline CAP(*) 100 MG PO SCH (09:06)
[2018-12-26] MEDS: Aspirin EC TAB* 81 MG TAB.EC PO SCH (09:06)
[2018-12-26] MEDS: Albuterol 2.5 MG/3 ML NEB.SOL* (0.083%) INH PRN (11:14)
[2018-12-26] MEDS: LORazepam TAB(*) 0.5 MG PO PRN (12:42)
[2018-12-26] MEDS: Acetaminophen TAB* 325 MG PO PRN (13:51)
[2018-12-26 15:28] VITALS: BP 116/71
--- NOTE | 2018-12-26 23:19 | DS ---
CC: MAYDA Corrales; Dr. Pratt * DISCHARGE SUMMARY: DATE OF ADMISSION: 12/22/18 DATE OF DISCHARGE: 12/26/18 PRIMARY DIAGNOSIS: Acute urinary retention, resolved with Mercedes catheter placement. SECONDARY DIAGNOSES: 1. Methicillin-resistant Staphylococcus aureus causing urinary tract infection. 2. Hypertension. 3. Chronic obstructive pulmonary disease, oxygen dependent, 4 L nasal cannula. 4. Schizophrenia. 5. Depression. 6. Essential tremor. 7. Multifocal atrial tachycardia. 8. Anemia. 9. Benign prostatic hypertrophy. MEDICATIONS ON DISCHARGE: 1. Acetaminophen 500 mg p.o. t.i.d. p.r.n. 2. Aspirin 81 mg p.o. daily. 3. Budesonide/formoterol 80/4.5 two inhalations b.i.d. 4. Diltiazem CD 240 mg p.o. daily. 5. Colace 200 mg p.o. daily. 6. Guaifenesin 400 mg p.o. t.i.d. p.r.n. 7. Hydrochlorothiazide 12.5 mg p.o. daily. 8. Lorazepam 0.5 mg p.o. daily p.r.n. 9. Castiva cooling lotion topically as needed. 10. Remeron 30 mg p.o. q.h.s. 11. Olanzapine 20 mg p.o. b.i.d. 12. Prednisone 5 mg p.o. daily. 13. Primidone 250 mg p.o. t.i.d. 14. Flomax 0.4 mg p.o. daily. 15. Spiriva 1 cap inhaled daily. 16. Albuterol nebulizer q.6 hours as needed. 17. Doxycycline 100 mg p.o. b.i.d. HOSPITAL COURSE: This 73-year-old resident of [facility] presented to the emergency department with lethargy and recent diagnosis of UTI. He had been treated as an outpatient with ciprofloxacin. There was suspicion of sepsis on admission. However, initial lactic acid was 0.6 and 0.9. He did not have any major organ dysfunction to suggest severe sepsis. The patient did have CT of the abdomen and pelvis on 12/22/18 that showed bilateral hydronephrosis without appreciable nephrolithiasis and marked bladder distention. He also had a large prostate. The patient had a Mercedes catheter placed and had good urine output. There was no renal failure from post renal obstruction. The patient has a history of BPH and came into the hospital on Flomax, which was continued during the hospital stay. The patient should be seen by Urology as an outpatient in the next 1 to 2 weeks for a voiding trial and further management of his bladder obstruction and BPH. The patient did have urinalysis that showed a 1+ protein, 3+ blood and 3+ leukocyte esterase on admission. Microbiology testing did grow MRSA from that culture and 10,000 to 25,000 colony forming units. This was resistant to penicillin and oxacillin, but sensitive to tetracycline, doxycycline and Bactrim. Given the urinary and prostate infection could cause bladder outlet obstruction, the patient was started on doxycycline to cover the MRSA. This should be continued for a week total. The patient had brief periods of tachycardia and irregular heart rate. All 3 EKGs taken showed premature atrial contractions without any clear AFib. The patient's diltiazem was continued, but he did not require anticoagulation. The patient presented with a white count of 17.9, but this fell to 8.7 with treatment of the UTI. The patient did present with troponin 0.06, which was the same on repeat. He did not have any symptoms referable to the cardiac concerns, so this was not further worked up. On admission, the patient did have a low sodium of 131, which corrected to 139 with some hydration initially. On the day prior to discharge, he had a sodium of 146. I recommended a repeat BMP in 3 to 5 days. DISPOSITION: To the adult home or an assisted living at [facility]. STATUS: His status while in the hospital is inpatient. CONDITION: Fair. DIET: Should be heart-healthy diet. ACTIVITY: Should be to ambulate with assistance as tolerated or at least go out of the bed to chair with assistance. He should have followup with his primary care doctor within 1 to 2 weeks and he should have a visiting nurse set up to come to be [facility] to assess the patient. TIME SPENT: I have spent more than 45 minutes today with the patient in arranging discharge and completing necessary paperwork. [id number]/[facility] #: [id number] PABLO
== END 2018-12-26 16:50 | disposition home health service (06) | DRG 872 ==
LOC: ED 09:14 → MED 12:03 → OBSVTOIN 12:03 → MED 18:23
PROVIDERS: ADMIT Internal Medicine; ATTEND Internal Medicine
DX: A41.9 Sepsis, unspecified organism (principal); N39.0 Urinary tract infection, site not specified; I47.1 Supraventricular tachycardia; I45.2 Bifascicular block; E87.1 Hypo-osmolality and hyponatremia; N13.30 Unspecified hydronephrosis; N13.8 Other obstructive and reflux uropathy; R33.9 Retention of urine, unspecified; Z66 Do not resuscitate; B95.62 Methicillin resistant Staphylococcus aureus infection as the cause of diseases classified elsewhere; J44.9 Chronic obstructive pulmonary disease, unspecified; Z99.81 Dependence on supplemental oxygen; E87.6 Hypokalemia; E86.0 Dehydration; F20.9 Schizophrenia, unspecified; F32.9 Major depressive disorder, single episode, unspecified; G25.0 Essential tremor; I10 Essential (primary) hypertension; D64.9 Anemia, unspecified; N40.1 Benign prostatic hyperplasia with lower urinary tract symptoms; I49.1 Atrial premature depolarization; Z79.1 Long term (current) use of non-steroidal anti-inflammatories (NSAID); Z79.82 Long term (current) use of aspirin; Z79.51 Long term (current) use of inhaled steroids; Z79.52 Long term (current) use of systemic steroids; Z79.899 Other long term (current) drug therapy
CPT/HCPCS: 36415; 71045; 74176; 80048; 80053; 81003; 81015; 83605; 83880; 84484; 85025; 85610; 85730; 86140; 87040; 87077; 87086; 87186; 87641; 93005; 94640; 99284; A9270-GY; J0696; J1644; J7512